=== PATIENT | female | born 2005 | race Caucasian/White ===

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

== ENCOUNTER → 2024-07-03 | Outpatient (CLI) | payer OTHER | LOC: M LAB 14:53 | PROVIDERS: ATTEND Nurse Practitioner Family | DX: L40.0 Psoriasis vulgaris (principal) ==